=== PATIENT | female | born 1970 | race Caucasian/White ===

== ENCOUNTER 2017-11-12 02:16 | Emergency (ER) | payer MEDICAID ==
[2017-11-12] MEDS ORDERED: Thiamine 100 MG in Sodium Chloride 0.9% 100 ML IV ONE (02:40)
[2017-11-12] MEDS ORDERED: Sodium Chloride 0.9% 1,000 ML IV SCH (02:45)
--- NOTE | 2017-11-12 03:36 | EDM.PDOC ---
ED HPI GENERAL MEDICAL PROBLEM - General Chief Complaint: Drug or Alcohol Abuse Stated Complaint: INTOXICATION Time Seen by Provider: 11/12/17 02:16 Source of Information: Reports: Patient, EMS History Limitations: Reports: Altered Mental Status - History of Present Illness INITIAL COMMENTS - FREE TEXT/NARRATIVE: 47 y.o.w.f was brought to the ed by ems after she was found sleeping at the customer service area at [facility] in [place], [place]. As per EMS, Pt was kicked out from a hotel. She arrived by ems in the ED with all her belongings, including suitcases, box of pills, purse etc. Pt is lethargic and not able to give a full HPI. No family member is present and she has nobody she can call. Primary survey: Airway is not compromised, her pupils are reactive, neck supple, she response to verbal stimuli, she has a slurred speech, however, moves all her extremities. GCS was 13 (Eye opening to speech 3, pt confused 4, obeys commands 6) BP 105/65 RR 17 Pulse 71 Pulse ox 99% on RA Temp 36.8 Onset Date: 11/12/17 Onset Time: 00:10 Duration: Hour(s):, Constant Location: Reports: Generalized Severity: Moderate Improves with: Reports: Rest Worsens with: Reports: Movement Context: Reports: Other Associated Symptoms: Reports: Other (lethargic) - Related Data Allergies Allergy/AdvReac Type Severity Reaction Status Date / Time No Known Allergies Allergy Verified 11/12/17 02:37 Home Meds: Home Meds Biotin 5,000 mg PO DAILY 11/12/17 [History] Diclofenac Sodium [Voltaren] 75 mg PO BID 11/12/17 [History] Gabapentin [Neurontin] 900 mg PO QID 11/12/17 [History] Omeprazole 20 mg PO DAILY 11/12/17 [History] Phenytoin Sodium Extended [Dilantin] 500 mg PO BEDTIME PRN 11/12/17 [History] Topiramate 100 mg PO BID PRN 11/12/17 [History] hydrOXYzine HCl [hydrOXYzine] 50 mg PO TID PRN 11/12/17 [History] tiZANidine HCl [Tizanidine HCl] 4 mg PO TID 11/12/17 [History] Past Medical History - Past Health History Medical/Surgical History: Denies Medical/Surgical History Social & Family History - Family History Family Medical History: Unobtainable - Tobacco Use Smoking Status *Q: Unknown Ever Smoked ED ROS GENERAL - Review of Systems Review Of Systems: Unable To Obtain (possible DOD) - Physical Exam Exam: See Below Exam Limited By: Altered Mental Status General Appearance: Alert, WD/WN, Lethargic Eye Exam: Bilateral Eye: Normal Inspection Ears: Normal External Exam Nose: Normal Inspection Throat/Mouth: Normal Lips, Normal Gums, Normal Voice, No Airway Compromise Head Exam: Atraumatic, Normocephalic Neck: Normal Inspection, Supple, Non-Tender, Full Range of Motion Respiratory/Chest: No Respiratory Distress, Lungs Clear (with poor insp effort) , No Accessory Muscle Use, Chest Non-Tender Cardiovascular: Normal Peripheral Pulses, Regular Rate, Rhythm, No Edema, No Gallop, No JVD, No Murmur, No Rub GI/Abdominal: Normal Bowel Sounds, Soft, Non-Tender, No Organomegaly, No Distention, No Abnormal Bruit, No Mass, Pelvis Stable (Female) Exam: Deferred Rectal (Female) Exam: Deferred Neuro Exam (Abbreviated): CN II-XII Intact, No Motor/Sensory Deficits, Abnormal Gait, Other (lethargic) Back Exam: Normal Inspection, Full Range of Motion Extremities: Normal Inspection, Normal Range of Motion, Non-Tender, No Pedal Edema, Normal Capillary Refill Psychiatric: Depressed Mood Skin Exam: Warm, Dry, Normal Color, No Rash, Other (injection anderson lower extremities, possible IVDA) EKG INTERPRETATION EKG Date: 11/12/17 Time: 04:15 Rhythm: NSR Rate (Beats/Min): 64 [place]: RAD-Right [place] Deviation P-Wave: Present QRS: Normal ST-T: Normal QT: Normal Comparison: NA - No Prior EKG EKG Interpretation Comments: low voltage ECG Course - Vital Signs Text/Narrative:: 47 y.o.w.f was brought to the ed by ems after she was found sleeping at the customer service area at [facility] in [place], [place]. As per EMS, Pt was kicked out from a hotel. She arrived by ems in the ED with all her belongings, including suitcases, box of pills, purse etc. Pt is lethargic and not able to give a full HPI. No family member is present and she has nobody she can call. Primary survey: Airway is not compromised, her pupils are reactive, neck supple, she response to verbal stimuli, she has a slurred speech, however, moves all her extremities. GCS was 13 (Eye opening to speech 3, pt confused 4, obeys commands 6) BP 105/65 RR 17 Pulse 71 Pulse ox 99% on RA Temp 36.8 PE: WNWD WF, appears intoxicated, dry mucosal membranes GCS 13, no tongue bite Imaging: Port. CXR: elevation R diaphram, NAD ECG: NSR, no acute ST/T wave changes, low voltage, no old ECG available ABG: pH 7.30 pCO2 48 pO2 55 BE -3.1 Labs: ETOH 0.03 K 3.4 Na 138 BUN 15 Cr 0.9 GFR > 60 Glc 83 CPK 483 Trop 0.017, HCG neg, UA neg for UTI, SG 1.030, ABG: ..... UDS pos for: Bencos, Amphetamines , Marijuana, Phencyclidine, Barbiturates, MDMA. Phenobarbital level 14.6 (nl) Impression: Dehydration, DOD (IVDA, polysubstance abuse) , Hypokalemia, Resp alkalosis Tx: NS, Thiamin, O2 by NC, Duoneb, NS with KCL Reexam: Pt is overall improving. However, her Pulse ox is now 91 on RA, pO2 is 55. 3 O2 by NC and a duoneb was given. Pulse ox is now 94 7.00 am: Pt was signed out to Dr. Buchanan due to shifts changes. Last Recorded V/S: Last Vital Signs Temp 36.1 C 11/12/17 05:25 Pulse 70 11/12/17 05:25 Resp 15 11/12/17 05:25 BP 103/55 L 11/12/17 05:25 Pulse Ox 98 11/12/17 05:25 - Orders/Labs/Meds Orders: Active Orders 24 hr Category Date Time Status Oxygen Therapy, ED [RC] ASDIRECTED Care 11/12/17 04:42 Active RT Aerosol Therapy [RC] ASDIRECTED Care 11/12/17 04:43 Active CXR [Chest 1V Frontal] [CR] Stat Exams 11/12/17 04:43 Taken DRUG SCREEN, URINE ALERE [URCHEM] Stat Lab 11/12/17 03:45 Ordered HCG QUALITATIVE,URINE [URCHEM] Stat Lab 11/12/17 03:45 Ordered URINALYSIS W/MICROSCOPIC [UA W/MICROSCOPIC] [URIN] Stat Lab 11/12/17 03:45 Ordered NS + KCl 20mEq/L [Normal Saline with 20 mEq KCl] 1,000 Med 11/12/17 05:30 Active ml IV ASDIRECTED Sodium Chloride 0.9% [Normal Saline] 1,000 ml Med 11/12/17 02:45 Active IV ASDIRECTED EKG 12 Lead [EK] Routine Ther 11/12/17 04:05 Ordered Medication Orders Sodium Chloride (Normal Saline) 1,000 mls @ 999 mls/hr IV ASDIRECTED DANUTA Last Admin: 11/12/17 02:48 Dose: 999 mls/hr Potassium Chloride/Sodium Chloride (Normal Saline With 20 Meq Kcl) 1,000 mls @ 150 mls/hr IV ASDIRECTED DANUTA Last Admin: 11/12/17 05:24 Dose: 150 mls/hr Labs: Laboratory Tests 11/12/17 11/12/17 11/12/17 Range/Units 02:35 02:35 02:35 WBC 7.0 (4.5-12.0) X10-3/uL RBC 3.70 (3.23-5.20) x10(6)uL Hgb 11.7 (11.5-15.5) g/dL Hct 35.4 (30.0-51.3) % MCV 95.5 (80-96) fL MCH 31.5 (27.7-33.6) pg MCHC 33.0 (32.2-35.4) g/dL RDW 13.5 (11.5-15.5) % Plt Count 176 (125-369) X10(3)uL MPV 8.7 (7.4-10.4) fL Neut % (Auto) 42.5 L (46-82) % Lymph % (Auto) 35.9 (13-37) % Humphreys % (Auto) 14.1 H (4-12) % Eos % (Auto) 6 H (1.0-5.0) % Baso % (Auto) 2 (0-2) % Neut # (Auto) 3.0 (1.6-8.3) # Lymph # (Auto) 2.5 (0.6-5.0) # Humphreys # (Auto) 1.0 (0.0-1.3) # Eos # (Auto) 0.4 (0.0-0.8) # Baso # (Auto) 0.1 (0.0-0.2) # D-Dimer, Quantitative (0.0-0.59) mg/LFEU ABG pH (7.35-7.45) ABG pCO2 (35-45) mmHg ABG pO2 (83-108) mmHg ABG HCO3 (22-26) mmol/L ABG O2 Saturation (96-97) % ABG Base Excess (-2-2) Yonatan Test O2 Delivery Device Sodium 138 (135-145) mmol/L Potassium 3.4 L (3.5-5.3) mmol/L Chloride 104 (100-110) mmol/L Carbon Dioxide 27 (21-32) mmol/L BUN 15 (7-18) mg/dL Creatinine 0.9 (0.55-1.02) mg/dL Est Cr Clr Drug Dosing TNP Estimated GFR (MDRD) > 60 (>60) BUN/Creatinine Ratio 16.7 (9-20) Glucose 83 (80-116) mg/dL Calcium 8.6 (8.6-10.2) mg/dL Total Bilirubin (0.1-1.3) mg/dL Direct Bilirubin (0.10-0.20) mg/dL AST (5-25) IU/L ALT (12-36) U/L Alkaline Phosphatase (56-112) IU/L Creatine Kinase (60-160) IU/L Troponin I (<0.017-0.056) ng/mL Total Protein (6.0-8.0) g/dL Albumin (3.5-5.2) g/dL Urine Color (YELLOW) Urine Appearance (CLEAR) Urine pH (5.0-6.5) Ur Specific [place] (1.010-1.025) Urine Protein (NEGATIVE) mg/dL Urine Glucose (UA) (NEGATIVE) mg/dL Urine Ketones (NEGATIVE) mg/dL Urine Occult Blood (NEGATIVE) Urine Nitrite (NEGATIVE) Urine Bilirubin (NEGATIVE) Urine Urobilinogen (NEGATIVE) mg/dL Ur Leukocyte Esterase (NEGATIVE) Urine RBC (0) Urine WBC (0) Ur Squamous Epith Cells (NS,R,O) Urine Bacteria (NS) Urine Mucus (NS) Urine HCG, Qual (NEGATIVE) Urine Opiates Screen (NEGATIVE) Ur Oxycodone Screen (NEGATIVE) Ur Propoxyphene Screen (NEGATIVE) Ur Barbituates Screen (NEGATIVE) Phenytoin (10-20) ug/mL Ur Tricyclics Screen (NEGATIVE) Ur Phencyclidine Scrn (NEGATIVE) Ur Amphetamine Screen (NEGATIVE) Urine MDMA Screen (NEGATIVE) U Benzodiazepines Scrn (NEGATIVE) U Cocaine Metab Screen (NEGATIVE) U Marijuana (THC) Screen (NEGATIVE) Ethyl Alcohol < 0.03 (<0.03) % 11/12/17 11/12/17 11/12/17 Range/Units 02:35 02:35 02:35 WBC (4.5-12.0) X10-3/uL RBC (3.23-5.20) x10(6)uL Hgb (11.5-15.5) g/dL Hct (30.0-51.3) % MCV (80-96) fL MCH (27.7-33.6) pg MCHC (32.2-35.4) g/dL RDW (11.5-15.5) % Plt Count (125-369) X10(3)uL MPV (7.4-10.4) fL Neut % (Auto) (46-82) % Lymph % (Auto) (13-37) % Humphreys % (Auto) (4-12) % Eos % (Auto) (1.0-5.0) % Baso % (Auto) (0-2) % Neut # (Auto) (1.6-8.3) # Lymph # (Auto) (0.6-5.0) # Humphreys # (Auto) (0.0-1.3) # Eos # (Auto) (0.0-0.8) # Baso # (Auto) (0.0-0.2) # D-Dimer, Quantitative (0.0-0.59) mg/LFEU ABG pH (7.35-7.45) ABG pCO2 (35-45) mmHg ABG pO2 (83-108) mmHg ABG HCO3 (22-26) mmol/L ABG O2 Saturation (96-97) % ABG Base Excess (-2-2) Yonatan Test O2 Delivery Device Sodium (135-145) mmol/L Potassium (3.5-5.3) mmol/L Chloride (100-110) mmol/L Carbon Dioxide (21-32) mmol/L BUN (7-18) mg/dL Creatinine (0.55-1.02) mg/dL Est Cr Clr Drug Dosing Estimated GFR (MDRD) (>60) BUN/Creatinine Ratio (9-20) Glucose (80-116) mg/dL Calcium (8.6-10.2) mg/dL Total Bilirubin (0.1-1.3) mg/dL Direct Bilirubin (0.10-0.20) mg/dL AST (5-25) IU/L ALT (12-36) U/L Alkaline Phosphatase (56-112) IU/L Creatine Kinase 483 H* (60-160) IU/L Troponin I < 0.017 L (<0.017-0.056) ng/mL Total Protein (6.0-8.0) g/dL Albumin (3.5-5.2) g/dL Urine Color (YELLOW) Urine Appearance (CLEAR) Urine pH (5.0-6.5) Ur Specific [place] (1.010-1.025) Urine Protein (NEGATIVE) mg/dL Urine Glucose (UA) (NEGATIVE) mg/dL Urine Ketones (NEGATIVE) mg/dL Urine Occult Blood (NEGATIVE) Urine Nitrite (NEGATIVE) Urine Bilirubin (NEGATIVE) Urine Urobilinogen (NEGATIVE) mg/dL Ur Leukocyte Esterase (NEGATIVE) Urine RBC (0) Urine WBC (0) Ur Squamous Epith Cells (NS,R,O) Urine Bacteria (NS) Urine Mucus (NS) Urine HCG, Qual (NEGATIVE) Urine Opiates Screen (NEGATIVE) Ur Oxycodone Screen (NEGATIVE) Ur Propoxyphene Screen (NEGATIVE) Ur Barbituates Screen (NEGATIVE) Phenytoin 14.6 (10-20) ug/mL Ur Tricyclics Screen (NEGATIVE) Ur Phencyclidine Scrn (NEGATIVE) Ur Amphetamine Screen (NEGATIVE) Urine MDMA Screen (NEGATIVE) U Benzodiazepines Scrn (NEGATIVE) U Cocaine Metab Screen (NEGATIVE) U Marijuana (THC) Screen (NEGATIVE) Ethyl Alcohol (<0.03) % 11/12/17 11/12/17 11/12/17 Range/Units 02:35 03:45 03:45 WBC (4.5-12.0) X10-3/uL RBC (3.23-5.20) x10(6)uL Hgb (11.5-15.5) g/dL Hct (30.0-51.3) % MCV (80-96) fL MCH (27.7-33.6) pg MCHC (32.2-35.4) g/dL RDW (11.5-15.5) % Plt Count (125-369) X10(3)uL MPV (7.4-10.4) fL Neut % (Auto) (46-82) % Lymph % (Auto) (13-37) % Humphreys % (Auto) (4-12) % Eos % (Auto) (1.0-5.0) % Baso % (Auto) (0-2) % Neut # (Auto) (1.6-8.3) # Lymph # (Auto) (0.6-5.0) # Humphreys # (Auto) (0.0-1.3) # Eos # (Auto) (0.0-0.8) # Baso # (Auto) (0.0-0.2) # D-Dimer, Quantitative (0.0-0.59) mg/LFEU ABG pH (7.35-7.45) ABG pCO2 (35-45) mmHg ABG pO2 (83-108) mmHg ABG HCO3 (22-26) mmol/L ABG O2 Saturation (96-97) % ABG Base Excess (-2-2) Yonatan Test O2 Delivery Device Sodium (135-145) mmol/L Potassium (3.5-5.3) mmol/L Chloride (100-110) mmol/L Carbon Dioxide (21-32) mmol/L BUN (7-18) mg/dL Creatinine (0.55-1.02) mg/dL Est Cr Clr Drug Dosing Estimated GFR (MDRD) (>60) BUN/Creatinine Ratio (9-20) Glucose (80-116) mg/dL Calcium (8.6-10.2) mg/dL Total Bilirubin 0.6 (0.1-1.3) mg/dL Direct Bilirubin 0.20 (0.10-0.20) mg/dL AST 66 H (5-25) IU/L ALT 82 H (12-36) U/L Alkaline Phosphatase 127 H (56-112) IU/L Creatine Kinase (60-160) IU/L Troponin I (<0.017-0.056) ng/mL Total Protein 7.2 (6.0-8.0) g/dL Albumin 3.5 (3.5-5.2) g/dL Urine Color Yellow (YELLOW) Urine Appearance Slightly cloudy (CLEAR) Urine pH 5.0 (5.0-6.5) Ur Specific [place] 1.030 H (1.010-1.025) Urine Protein Trace (NEGATIVE) mg/dL Urine Glucose (UA) Normal (NEGATIVE) mg/dL Urine Ketones 50 H (NEGATIVE) mg/dL Urine Occult Blood Large H (NEGATIVE) Urine Nitrite Negative (NEGATIVE) Urine Bilirubin Small H (NEGATIVE) Urine Urobilinogen 1 H (NEGATIVE) mg/dL Ur Leukocyte Esterase Negative (NEGATIVE) Urine RBC 20-30 H (0) Urine WBC 0-5 (0) Ur Squamous Epith Cells Few H (NS,R,O) Urine Bacteria Moderate H (NS) Urine Mucus Many H (NS) Urine HCG, Qual (NEGATIVE) Urine Opiates Screen Negative (NEGATIVE) Ur Oxycodone Screen Negative (NEGATIVE) Ur Propoxyphene Screen Negative (NEGATIVE) Ur Barbituates Screen Positive H (NEGATIVE) Phenytoin (10-20) ug/mL Ur Tricyclics Screen Negative (NEGATIVE) Ur Phencyclidine Scrn Positive H (NEGATIVE) Ur Amphetamine Screen Positive H (NEGATIVE) Urine MDMA Screen Positive H (NEGATIVE) U Benzodiazepines Scrn Positive H (NEGATIVE) U Cocaine Metab Screen Negative (NEGATIVE) U Marijuana (THC) Screen Positive H (NEGATIVE) Ethyl Alcohol (<0.03) % 11/12/17 11/12/17 11/12/17 Range/Units 03:45 04:25 05:15 WBC (4.5-12.0) X10-3/uL RBC (3.23-5.20) x10(6)uL Hgb (11.5-15.5) g/dL Hct (30.0-51.3) % MCV (80-96) fL MCH (27.7-33.6) pg MCHC (32.2-35.4) g/dL RDW (11.5-15.5) % Plt Count (125-369) X10(3)uL MPV (7.4-10.4) fL Neut % (Auto) (46-82) % Lymph % (Auto) (13-37) % Humphreys % (Auto) (4-12) % Eos % (Auto) (1.0-5.0) % Baso % (Auto) (0-2) % Neut # (Auto) (1.6-8.3) # Lymph # (Auto) (0.6-5.0) # Humphreys # (Auto) (0.0-1.3) # Eos # (Auto) (0.0-0.8) # Baso # (Auto) (0.0-0.2) # D-Dimer, Quantitative 0.34 (0.0-0.59) mg/LFEU ABG pH 7.30 L (7.35-7.45) ABG pCO2 48 H (35-45) mmHg ABG pO2 55 L (83-108) mmHg ABG HCO3 23 (22-26) mmol/L ABG O2 Saturation 85 L (96-97) % ABG Base Excess -3.1 L (-2-2) Yonatan Test Passed O2 Delivery Device Room air Sodium (135-145) mmol/L Potassium (3.5-5.3) mmol/L Chloride (100-110) mmol/L Carbon Dioxide (21-32) mmol/L BUN (7-18) mg/dL Creatinine (0.55-1.02) mg/dL Est Cr Clr Drug Dosing Estimated GFR (MDRD) (>60) BUN/Creatinine Ratio (9-20) Glucose (80-116) mg/dL Calcium (8.6-10.2) mg/dL Total Bilirubin (0.1-1.3) mg/dL Direct Bilirubin (0.10-0.20) mg/dL AST (5-25) IU/L ALT (12-36) U/L Alkaline Phosphatase (56-112) IU/L Creatine Kinase (60-160) IU/L Troponin I (<0.017-0.056) ng/mL Total Protein (6.0-8.0) g/dL Albumin (3.5-5.2) g/dL Urine Color (YELLOW) Urine Appearance (CLEAR) Urine pH (5.0-6.5) Ur Specific [place] (1.010-1.025) Urine Protein (NEGATIVE) mg/dL Urine Glucose (UA) (NEGATIVE) mg/dL Urine Ketones (NEGATIVE) mg/dL Urine Occult Blood (NEGATIVE) Urine Nitrite (NEGATIVE) Urine Bilirubin (NEGATIVE) Urine Urobilinogen (NEGATIVE) mg/dL Ur Leukocyte Esterase (NEGATIVE) Urine RBC (0) Urine WBC (0) Ur Squamous Epith Cells (NS,R,O) Urine Bacteria (NS) Urine Mucus (NS) Urine HCG, Qual Negative (NEGATIVE) Urine Opiates Screen (NEGATIVE) Ur Oxycodone Screen (NEGATIVE) Ur Propoxyphene Screen (NEGATIVE) Ur Barbituates Screen (NEGATIVE) Phenytoin (10-20) ug/mL Ur Tricyclics Screen (NEGATIVE) Ur Phencyclidine Scrn (NEGATIVE) Ur Amphetamine Screen (NEGATIVE) Urine MDMA Screen (NEGATIVE) U Benzodiazepines Scrn (NEGATIVE) U Cocaine Metab Screen (NEGATIVE) U Marijuana (THC) Screen (NEGATIVE) Ethyl Alcohol (<0.03) % Meds: Medications Generic Name Dose Route Start Last Admin Trade Name Freq PRN Reason Stop Dose Admin Sodium Chloride 1,000 mls @ 999 mls/hr 11/12/17 02:45 11/12/17 02:48 Normal Saline IV 999 mls/hr ASDIRECTED DANUTA Administration Potassium Chloride/Sodium Chloride 1,000 mls @ 150 mls/hr 11/12/17 05:30 05:24 Normal Saline With 20 Meq Kcl IV 150 mls/hr ASDIRECTED DANUTA Administration Discontinued Medications Generic Name Dose Route Start Last Admin Trade Name Freq PRN Reason Stop Dose Admin Albuterol/Ipratropium 3 ml 11/12/17 04:42 11/12/17 04:49 Duoneb 3.0-0.5 Mg/3 Ml NEB 11/12/17 04:43 3 ml ONETIME ONE Administration Thiamine HCl 100 mg/ Sodium 101 mls @ 202 mls/hr 11/12/17 02:40 11/12/17 02: 51 Chloride IV 11/12/17 02:41 202 mls/hr ONETIME ONE Administration Sodium Chloride 1,000 mls @ 999 mls/hr 11/12/17 04:05 11/12/17 04:05 Normal Saline IV 11/12/17 05:05 999 mls/hr .BOLUS ONE Administration Departure - Departure Time of Disposition: 07:00 Disposition: Home, Self-Care 01 Clinical Impression: Polysubstance abuse - Discharge Information Referrals: PCP,None [Ordering Only Provider] - Forms: ED Department Discharge - My Orders Last 24 Hours: My Active Orders 11/12/17 02:45 Sodium Chloride 0.9% [Normal Saline] 1,000 ml IV ASDIRECTED 11/12/17 03:45 DRUG SCREEN, URINE ALERE [URCHEM] Stat HCG QUALITATIVE,URINE [URCHEM] Stat URINALYSIS W/MICROSCOPIC [UA W/MICROSCOPIC] [URIN] Stat 11/12/17 04:05 EKG 12 Lead [EK] Routine 11/12/17 04:42 Oxygen Therapy, ED [RC] ASDIRECTED 11/12/17 04:43 RT Aerosol Therapy [RC] ASDIRECTED CXR [Chest 1V Frontal] [CR] Stat 11/12/17 05:30 NS + KCl 20mEq/L [Normal Saline with 20 mEq KCl] 1,000 ml IV ASDIRECTED - Assessment/Plan Last 24 Hours: My Active Orders 11/12/17 02:45 Sodium Chloride 0.9% [Normal Saline] 1,000 ml IV ASDIRECTED 11/12/17 03:45 DRUG SCREEN, URINE ALERE [URCHEM] Stat HCG QUALITATIVE,URINE [URCHEM] Stat URINALYSIS W/MICROSCOPIC [UA W/MICROSCOPIC] [URIN] Stat 11/12/17 04:05 EKG 12 Lead [EK] Routine 11/12/17 04:42 Oxygen Therapy, ED [RC] ASDIRECTED 11/12/17 04:43 RT Aerosol Therapy [RC] ASDIRECTED CXR [Chest 1V Frontal] [CR] Stat 11/12/17 05:30 NS + KCl 20mEq/L [Normal Saline with 20 mEq KCl] 1,000 ml IV ASDIRECTED
[2017-11-12] MEDS ORDERED: Sodium Chloride 0.9% 1,000 ML IV ONE (04:05)
[2017-11-12] MEDS ORDERED: Albuterol/Ipratropium 3.0-0.5 MG/3 ML Neb Soln NEB ONE (04:42)
[2017-11-12] MEDS ORDERED: NS + KCl 20mEq/L 1,000 ML IV SCH (05:30)
--- NOTE | 2017-11-15 14:42 | CR ---
INDICATION: Shortness of breath. CHEST, AP VIEW: FINDINGS: The patient apparently could not stay awake long enough to give a good inspiration. There is increased density over the mid and lower chest bilaterally that I think is related to overlying breast tissue attenuation artifact. I am not convinced that there is a focal pneumonia. There is no CHF. There is a scoliosis deformity of the thoracic spine, curved convex left, which may be positional. The bony thorax otherwise appears to be intact. IMPRESSION: No definite CHF or pneumonia. The imaging is limited as above. If the patient does not appear to improve appropriately clinically, I would recommend a followup chest x-ray for further evaluation. MTDD
== END 2017-11-12 12:25 | disposition home or self-care (01) ==
LOC: FB.ED 02:16
DX: F11.129 Opioid abuse with intoxication, unspecified (principal); F13.129 Sedative, hypnotic or anxiolytic abuse with intoxication, unspecified; F14.129 Cocaine abuse with intoxication, unspecified; F12.129 Cannabis abuse with intoxication, unspecified; F15.129 Other stimulant abuse with intoxication, unspecified; E87.3 Alkalosis; E86.0 Dehydration; E87.6 Hypokalemia
CPT/HCPCS: 36415; 36600; 71045; 80048; 80076; 80185; 80305-QW; 81001; 81025; 82550; 82803; 84484; 85025; 85379; 93005; 94640; 96361; 96365; 96366; 96367; 99285; G0480; J3411; J3480; J7030; J7620-GY